=== PATIENT | male | born 1985 | race Caucasian/White ===

== ENCOUNTER 2022-05-13 12:58 | Emergency (ER) | payer OTHER ==
[2022-05-13 14:05] LABS: ESTIMATED GFR 89 mL/min (>60)
== END 2022-05-13 15:30 | disposition home or self-care (01) ==
LOC: JD.ED 12:58
DX: R07.89 Other chest pain (principal)
CPT/HCPCS: 36415; 71045; 71045-26; 80053; 84484; 85025; 85379; 86140; 93005; 93010; 99284; 99285